=== PATIENT | female | born 1980 | race Caucasian/White ===

== ENCOUNTER 2016-10-18 11:13 | Emergency (ER) | payer MEDICAID, OTHER ==
[2016-10-18 11:26] VITALS: BP 103/70; RESP 16; TEMP 98.1; O2SAT 96
--- NOTE | 2016-10-18 14:01 | EDPHY ---
H & P Stated Complaint: REDNESS AND PAIN OF R EYE FOR 4 DAYS Time Seen by Provider: 10/18/16 11:52 HPI/ROS: CHIEF COMPLAINT: Left eye pain HISTORY OF PRESENT ILLNESS: This is a healthy 35-year-old female who presents with 4 days of left eye discomfort. She has had redness, itching, and burning pain. She notices a raised area on the white of her left eye. She denies discharge or matting. She notices mild swelling of the lids of her left eye, similar to what she has had with allergies in the past. She is having no difficulty with the right eye. She denies any change in vision. She does not have a foreign body sensation. She has had no eye trauma of which she is aware. She does not wear contact lenses. She denies fever, upper respiratory infection, headache, or other recent illness. REVIEW OF SYSTEMS: A ten point review of systems was performed and is negative with the exception of the items mentioned in the HPI. She has a 2-month-old baby and is breast feeding. She states that she is sleep deprived. Source: Patient, Family Exam Limitations: No limitations - Personal History LMP (Females 10-55): Over 28 Days Ago Current Tetanus Diphtheria and Acellular Pertussis (TDAP): Yes Tetanus Vaccine Date: < 10 YEARS - Medical/Surgical History Hx Asthma: No Hx Chronic Respiratory Disease: No Hx Diabetes: No Hx Cardiac Disease: No Hx Renal Disease: No Hx Cirrhosis: No Hx Alcoholism: No Hx HIV/AIDS: No Hx Splenectomy or Spleen Trauma: No Other PMH: DENIES - Social History Smoking Status: Never smoked Alcohol Use: None Drug Use: None Additional Social History: New to [place]. She lives with her and 2-month-old infant. - Physical Exam Exam: General Appearance: Alert. Vital signs reviewed. Visual Acuity: noted from Nurse's notes. Pupils:equal round and reactive to light EOMI no pain with eye movement. Lids: no edema or swelling Skin: no proptosis, no periorbital erythema or swelling, no vesicles Conjunctivae: mildly injected OD, no discharge, area of chemosis lateral lower OD Cornea: exam with fluorescein shows corneal abrasion between 5 and 6 o'clock Anterior chamber:normal, no hyphema or hypopyon. ENT, Mouth: Mucous membranes are moist, no oropharyngeal erythema or edema. Neck: No lymphadenopathy. Respiratory: Lungs are clear to auscultation; no wheezes, rales, or rhonchi. Cardiovascular: Regular rate and rhythm; no murmur, rub, or gallop. Skin: Warm and dry, no rashes on exposed skin, normal color. Neurological: Alert and oriented. Moving all four extremities easily and equally. Psychiatric: Normal affect. Constitutional: Initial Vital Signs Temperature (C) 36.7 C 10/18/16 11:22 Heart Rate 81 10/18/16 11:22 Respiratory Rate 16 10/18/16 11:22 Blood Pressure 103/70 10/18/16 11:22 O2 Sat (%) 96 10/18/16 11:22 O2 Delivery Mode Room Air Allergies/Adverse Reactions: amoxicillin Allergy (Verified 10/18/16 11:27) Home Medications: Medication Instructions Recorded Tobramycin/Dexamethasone [Tobradex 1 drp RTEYE QID #1 drops.susp 10/18/16 Eye Drops] Medical Decision Making ED Course/Re-evaluation: Small corneal abrasion and an area of chemosis OD. 1 drop 4 times daily of TobraDex has been recommended by Dr. Pineda. He will see her in his office in follow-up. I reviewed the danger signs that should prompt her to be immediately re-evaluated. Differential Diagnosis: I considered a differential diagnosis that includes but is not limited to corneal abrasion, chemosis, corneal laceration, conjunctivitis either viral or bacterial, retained foreign body, acute glaucoma, and iritis. Departure - Departure Disposition: Home, Routine, Self-Care Clinical Impression: Chemosis of left conjunctiva Corneal abrasion, right Qualifiers: Encounter type: initial encounter Qualified Code(s): S05.01XA - Injury of conjunctiva and corneal abrasion without foreign body, right eye, initial encounter Condition: Good Instructions: Corneal Abrasion (ED) Additional Instructions: Call Dr. Pineda's office Thursday, thing. Let the office staff know that you were treated in the emergency department. They will arrange follow-up for you on Thursday or Thursday. If you have change of vision, worsening eye pain, any new or concerning symptoms you should be re-evaluated. Referrals: NONE *PRIMARY CARE P,. [Primary Care Provider] - As per Instructions Ahmet Pineda MD [Medical Doctor] - As per Instructions Prescriptions: Tobramycin/Dexamethasone [Tobradex Eye Drops] 1 drp RTEYE QID #1 drops.susp
[2016-10-18 14:24] VITALS: PULSE 64
== END 2016-10-18 14:15 | disposition home or self-care (01) ==
LOC: CED 11:13
DX: H11.422 Conjunctival edema, left eye (principal); S05.01XA Injury of conjunctiva and corneal abrasion without foreign body, right eye, initial encounter; X58.XXXA Exposure to other specified factors, initial encounter